=== PATIENT | male | born 1955 | race Caucasian/White ===

== ENCOUNTER 2020-07-23 16:53 | Emergency (ER) | payer MEDICARE, OTHER ==
[2020-07-23] MEDS ORDERED: Sodium Chloride 0.9% 10 ML Syringe FLUSH PRN (16:59)
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
[2020-07-23] MEDS: Ketorolac 30 MG/ML SDV IVPUSH ONE (18:33)
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
--- NOTE | 2020-07-23 18:36 | CR ---
[id number] RAD/RAD Pelvis 1V W 2V Right Hip Exam: RAD Pelvis 1V W 2V Right Hip Clinical Data: TRAUMA COMPARISON: NO PREVIOUS SIMILAR EXAM IS AVAILABLE FINDINGS: No fracture or dislocation is seen There are degenerative changes IMPRESSION: NO FRACTURE OR DISLOCATION Collin Neri MD 07/23/20 [phone] Thank you for allowing us to participate in the care of your patient.
[2020-07-23] MEDS: Acetaminophen/HYDROcodone 325-10 MG Tab PO ONE (19:15)
== END 2020-07-23 19:20 | disposition home or self-care (01) ==
LOC: KA.ED 16:53
DX: S70.02XA Contusion of left hip, initial encounter (principal); S70.01XA Contusion of right hip, initial encounter; S80.01XA Contusion of right knee, initial encounter; S80.02XA Contusion of left knee, initial encounter; I10 Essential (primary) hypertension; V89.2XXA Person injured in unspecified motor-vehicle accident, traffic, initial encounter
CPT/HCPCS: 70450; 71045; 72125; 73562-LT; 73562-RT; 93005; 96374; 96375; 99284; 99285-25; A9270-GY; J1885; J3360